=== PATIENT | male | born 1960 | race Asian ===

== ENCOUNTER 2021-04-23 10:04 | Emergency (ER) | payer OTHER ==
[~2021-04-23] VITALS: Ht 172.7 cm; Wt 87.3 kg
[2021-04-23 10:09] VITALS: BP 106/68
[2021-04-23] MEDS ORDERED: TAMS-13 PO (10:44)
[2021-04-23] MEDS ORDERED: ATOR20TA86 PO (10:44)
[2021-04-23] MEDS ORDERED: AMLO2.5T96 PO (10:44)
[2021-04-23] MEDS ORDERED: LOSA25TA21 PO (10:44)
[2021-04-23] MEDS ORDERED: AMLO-257 PO (11:12)
[2021-04-23] MEDS ORDERED: LOSA50TA37 PO (11:12)
== END 2021-04-23 14:01 | disposition home or self-care (01) ==
LOC: EMS 10:04
DX: K64.8 Other hemorrhoids (principal); I10 Essential (primary) hypertension; E78.00 Pure hypercholesterolemia, unspecified
CPT/HCPCS: 99283; Z7502